=== PATIENT | female | born 1955 | race Caucasian/White ===

== ENCOUNTER 2018-02-10 13:48 | Emergency (ER) | payer MEDICARE ==
[2018-02-10] MEDS ORDERED: LORAZEPAM INJ 2 MG/1 ML VIAL IV ONE (14:49)
[2018-02-10] MEDS ORDERED: DIPHENHYDRAMINE HCL 50 MG/ML VIAL IV ONE (14:50)
[2018-02-10] MEDS ORDERED: NORMAL SALINE 1000 ML 1,000 ML IV ONE (14:50)
--- NOTE | 2018-02-10 15:17 | RADIOLOGY REPORT (SQ) ---
EXAM DESCRIPTION: CT HEAD WITHOUT COMPLETED DATE/TIME: 02/10/2018 3:04 pm REASON FOR STUDY: ams COMPARISON: None. TECHNIQUE: Axial images acquired through the brain without intravenous contrast. Images reviewed wi th bone, brain and subdural windows. Additional sagittal and coronal reconstructions were generated. Images stored on PACS. All CT scanners at this facility use dose modulation, iterative reconstruction, and/or weight based d osing when appropriate to reduce radiation dose to as low as reasonably achievable (ALARA). [facility]: Dose Right [facility]: CareDose [facility]: Dose Right [facility]: Teradose 4D [facility]: [employer] RADIATION DOSE: 1017 mGy cm LIMITATIONS: None. FINDINGS: VENTRICLES: There is a large volume of hyperdense blood product in the left lateral ventri elizabeth extending into the 3rd ventricle. Mild ventriculomegaly concerning for obstructive hydrocephalus at the aqueduct. CEREBRUM: No masses. No obvious nidus of hemorrhage. No significant midline shift. No evidence for acute infarction. Normal claros/white matter differentiation. No areas of low density in the white mat ter. CEREBELLUM: No masses. No hemorrhage. No alteration of density. No evidence for acute infarction. EXTRAAXIAL SPACES: No fluid collections. No masses. ORBITS AND GLOBE: No intra- or extraconal masses. Normal contour of globe without masses. CALVARIUM: No fracture. PARANASAL SINUSES: No fluid or mucosal thickening. SOFT TISSUES: No mass or hematoma. OTHER: No other significant finding. IMPRESSION: There is a large volume of hyperdense blood product in the left lateral ventricle extend ing into the 3rd ventricle. There is no obvious nidus of hemorrhage although presumably hemorrhage o riginates from the left basal ganglia. Mild ventriculomegaly concerning for obstructive hydrocephalu s at the aqueduct. Findings discussed with Dr. Pendleton by telephone, 3:10 PM 02/10/2018. EVIDENCE OF ACUTE STROKE: NO. COMMENT: Quality ID # [id number]: Final reports with documentation of one or more dose reduction techniques (e.g., Automated exposure control, adjustment of the mA and/or kV according to patient size, use of iterative reconstruction technique) TECHNICAL DOCUMENTATION: JOB ID: [id number] [employer]- All Rights Reserved Reading location - IP/workstation name: [email or web address]
--- NOTE | 2018-02-10 15:28 | RADIOLOGY REPORT (SQ) ---
EXAM DESCRIPTION: CHEST SINGLE VIEW COMPLETED DATE/TIME: 02/10/2018 3:15 pm REASON FOR STUDY: ams COMPARISON: None. EXAM PARAMETERS: NUMBER OF VIEWS: One view. TECHNIQUE: Single frontal radiographic view of the chest acquired. RADIATION DOSE: NA LIMITATIONS: None. FINDINGS: LUNGS AND PLEURA: Increased interstitial markings at the right and left lateral costophren ic sulci probably chronic. No acute infiltrates. No pleural effusion or pneumothorax. MEDIASTINUM AND HILAR STRUCTURES: No masses. Contour normal. HEART AND VASCULAR STRUCTURES: Heart normal in size. Normal vasculature. BONES: No acute findings. HARDWARE: None in the chest. OTHER: No other significant finding. IMPRESSION: No acute findings TECHNICAL DOCUMENTATION: JOB ID: [id number] [employer]- All Rights Reserved Reading location - IP/workstation name: [email or web address]
--- NOTE | 2018-02-10 15:37 | ER Document Report ---
ED General - General Chief Complaint: Altered Mental Status Stated Complaint: ALTERED MENTAL STATUS Time Seen by Provider: 02/10/18 14:17 TRAVEL OUTSIDE OF THE [place] IN LAST 30 DAYS: No - HPI Patient complains to provider of: Altered mental status Notes: Patient coming into the ER today for altered mental status. Patient upon my evaluation has GCS of 15 otherwise a no x1. Patient is unable to tell me how she arrived to the hospital where she is currently had. Presently on his states. Patient is able to identify her name. Patient is able to tell me that she moved from [place] to the area. Patient does have a bag full of medications including Dilaudid citrate Farheen benazepril. Patient states she is unaware of why she is taking this medication. Patient is able to tell me that she takes trazodone for sleep. Patient denies any trauma denies any pain at this time. Patient otherwise is resting comfortably upon my evaluation seems to be slightly agitated. Nursing staff reports patient was found by a neighbor ambulating around the house in animal feces Past Medical History - Social History Smoking Status: Unknown if Ever Smoked Family History: Reviewed & Not Pertinent Review of Systems - Review of Systems -: Yes ROS unobtainable due to patient's medical condition - Altered mental status Physical Exam - Vital signs Vitals: Resp 16 02/10/18 13:54 Interpretation: Normal - General General appearance: Appears well, Alert - HEENT Head: Normocephalic, Atraumatic Eyes: Normal Pupils: PERRL - Respiratory Respiratory status: No respiratory distress Chest status: Nontender Breath sounds: Normal Chest palpation: Normal - Cardiovascular Rhythm: Regular Heart sounds: Normal auscultation Murmur: No - Abdominal Inspection: Normal Distension: No distension Bowel sounds: Normal Tenderness: Nontender Organomegaly: No organomegaly - Back Back: Normal, Nontender - Extremities General upper extremity: Normal inspection, Nontender, Normal color, Normal ROM , Normal temperature General lower extremity: Normal inspection, Nontender, Normal color, Normal ROM , Normal temperature, Normal weight bearing. No: Nathalie's sign - Neurological Neuro grossly intact: Yes Cognition: Normal Orientation: Disoriented to place, Disoriented to time, Disoriented to events [place] Coma Scale Eye Opening: Spontaneous [place] Coma Scale Verbal: Oriented [place] Coma Scale Motor: Obeys Commands [place] Coma Scale Total: 15 Speech: Normal Motor strength normal: LUE, RUE, LLE, RLE Sensory: Normal - Psychological Associated symptoms: Normal affect, Normal mood - Skin Skin Temperature: Warm Skin Moisture: Dry Skin Color: Normal Course - Re-evaluation Re-evalutation: 02/10/18 16:29 CT the patient has shows a large left-sided ventricular bleed. Examination the patient is not revealing signs of trauma. We were able to contact the patient' s sister who lives in the ER sister states that she became worried that she last heard from her sister on Saturday tried calling the patient Saturday the telephone was notified local law enforcement today who found the patient. States to her knowledge the patient has history of chronic pain difficulty sleeping and a history of hypertension but denies history of blood thinning medication. Was notified by the radiologist patient had a rather extensive intracranial bleed we did call the local trauma center [facility] speaking with the neurosurgeon and neurologist on-call did discuss the case with Dr. Jameson night he was able to review the films states that we will start the patient in the ER to ER transfer. Requesting TXA 1 g mannitol 1 g/kg and to maintain blood pressures 140s-150 systolic. Medications have been ordered. Patient remained stable at this time blood pressure is up trending I have encouraged nursing staff to initiate the labetalol drip 02/10/18 23:02 Patient's chemistry pathology returned just as the flight crew was in the wall of their evaluation. Patient does have slightly elevated troponin 0.2. At this time patient is not complaining of any chest pain do believe this more likely due to the patient's underlying condition of having a intracranial bleed. I did continue agree with the treatment plan of TXA mannitol and labetalol for blood pressure control. Patient was transferred stable - Vital Signs Vital signs: Temp Pulse Resp BP Pulse Ox 78 18 166/95 H 97 02/10/18 15:50 02/10/18 15:50 02/10/18 15:50 02/10/18 15:50 - Laboratory Result Diagrams: 02/10/18 15:35 02/10/18 15:35 Laboratory results interpreted by me: 02/10/18 02/10/18 02/10/18 15:35 15:35 15:35 WBC 12.9 H RDW 16.3 H Seg Neutrophils % 80.7 H Lymphocytes % 12.6 L Absolute Neutrophils 10.4 H VBG pH VBG HCO3 Sodium 128.9 L Potassium 3.0 L* Chloride 90 L BUN 50 H Est GFR (Non-Af Amer) 57 L Glucose 124 H Magnesium 2.4 H AST 63 H Ammonia < 8.7 L Creatine Kinase 285 H Salicylates 1.7 L Acetaminophen < 10 L 02/10/18 15:35 WBC RDW Seg Neutrophils % Lymphocytes % Absolute Neutrophils VBG pH 7.49 H VBG HCO3 33.7 H Sodium Potassium Chloride BUN Est GFR (Non-Af Amer) Glucose Magnesium AST Ammonia Creatine Kinase Salicylates Acetaminophen Discharge - Discharge Clinical Impression: Intracranial bleed Altered mental status Qualifiers: Coma depth: [place] coma 13-15 Coma timing: unspecified coma timing Condition: Good Disposition: [facility]
[2018-02-10 15:51] VITALS: BP 166/95
[2018-02-10 15:52] LABS: INTERNATIONAL RATION (INR) 0.86; PROTHROMBIN TIME 12.2 SEC (11.4-15.4)
[2018-02-10] MEDS ORDERED: LABETALOL HCL INJ 20 MG/4 ML DISP.SYRIN IV ONE (15:57)
[2018-02-10 15:59] LABS: ABSOLUTE LYMPHOCYTES (AUTO) 1.6 10^3/uL (0.5-4.7); ABSOLUTE MONOCYTES (AUTO) 0.8 10^3/uL (0.1-1.4); ABSOLUTE NEUT (AUTO) 10.4 10^3/uL (1.7-8.2); BASOPHILS % (AUTO) 0.1 % (0-2); EOSINOPHILS % (AUTO) 0.1 % (0-6); HEMATOCRIT 37.9 % (36.0-47.0); HEMOGLOBIN 12.8 g/dL (12.0-15.5); LYMPHOCYTES % (AUTO) 12.6 % (13-45); MEAN CORPUSCULAR HEMOGLOBIN 30.7 pg (27.0-33.4); MEAN CORPUSCULAR HGB CONC 33.8 g/dL (32.0-36.0); MEAN CORPUSCULAR VOLUME 91 fl (80-97); MONOCYTES % (AUTO) 6.5 % (3-13); PLATELET COUNT 326 10^3/uL (150-450); RED BLOOD COUNT 4.17 10^6/uL (3.72-5.28); RED CELL DISTRIBUTION WIDTH 16.3 % (11.5-14.0); SEGMENTED NEUTROPHILS % (AUTO) 80.7 % (42-78); TOTAL CELLS COUNTED % (AUTO) 100 %; WHITE BLOOD COUNT 12.9 10^3/uL (4.0-10.5)
[2018-02-10 16:00] LABS: VENOUS BLOOD BASE EXCESS 9.3 mmol/L; VENOUS BLOOD HCO3 33.7 mmol/L (20-32); VENOUS BLOOD PCO2 45.2 mmHg (35-63); VENOUS BLOOD PH 7.49 (7.30-7.42)
[2018-02-10] MEDS ORDERED: TRANEXAMIC ACID INJ/PF 1,000 MG/10 ML SDV IV ONE (16:04)
[2018-02-10] MEDS ORDERED: LABETALOL HCL 200 MG in NORMAL SALINE 160 ML IV ONE (16:05)
[2018-02-10] MEDS ORDERED: MANNITOL IV ONE ×2 (16:14→17:00)
[2018-02-10 16:21] LABS: ALANINE AMINOTRANSFERASE 45 U/L (9-52); ALKALINE PHOSPHATASE 68 U/L (38-126); ANION GAP 10 (5-19); ASPARTATE AMINO TRANSFERASE 63 U/L (14-36); BILIRUBIN,DIRECT 0.3 mg/dL (0.0-0.4); BILIRUBIN,TOTAL 0.8 mg/dL (0.2-1.3); BLOOD UREA NITROGEN 50 mg/dL (7-20); CALCIUM 9.8 mg/dL (8.4-10.2); CARBON DIOXIDE 29 mmol/L (22-30); CHLORIDE 90 mmol/L (98-107); CREATINE KINASE 285 U/L (30-135); GLUCOSE 124 mg/dL (75-110); SALICYLATE 1.7 mg/dL (2.0-20.0); SODIUM 128.9 mmol/L (137-145); TOTAL PROTEIN 6.8 g/dL (6.3-8.2)
[2018-02-10 16:23] LABS: ACETAMINOPHEN < 10 ug/mL (10-30); ALCOHOL < 10 mg/dL (NONE DETECTED)
[2018-02-10] MEDS ORDERED: LABETALOL HCL INJ 200 MG/40 ML VIAL IV ONE (16:34)
--- NOTE | 2018-02-11 07:32 | EKG REPORT ---
SEVERITY:- ABNORMAL ECG - SINUS OR ECTOPIC ATRIAL RHYTHM SHORT MT INTERVAL, ACCELERATED AV CONDUCTION LVH WITH SECONDARY REPOLARIZATION ABNORMALITY ST DEPRESSION, CONSIDER ISCHEMIA, DIFFUSE LDS : Confirmed by: Milan Palacios MD 11-Feb-2018 07:31:39
== END 2018-02-10 17:10 | disposition short-term general hospital (02) ==
LOC: ER 13:48
DX: T42.6X2A Poisoning by other antiepileptic and sedative-hypnotic drugs, intentional self-harm, initial encounter (principal); I62.9 Nontraumatic intracranial hemorrhage, unspecified; F41.9 Anxiety disorder, unspecified; F19.10 Other psychoactive substance abuse, uncomplicated; Y92.9 Unspecified place or not applicable; Z79.899 Other long term (current) drug therapy; Z87.891 Personal history of nicotine dependence
CPT/HCPCS: 93005; 99291; 99292; 96365; 96368; 36415; 80307 ×3; 82140; 82550; 83735; 85025; 85610; 85730; 80053; 84484; 82803; 83605; 71045; 70450; 93010; J3490 ×3; J2150; J7030; J7050